=== PATIENT | male | born 1960 | race Caucasian/White ===

== ENCOUNTER 2017-06-03 20:26 | Inpatient (IN) | payer OTHER ==
[2017-06-03] MEDS: ALBUTEROL 0.5% (NEB) 2.5 MG/0.5 ML AMP INH (20:58)
[2017-06-03 21:19] LABS: ADD MAN DIFF? NO
[2017-06-03 21:22] LABS: WHITE BLOOD COUNT 6.5 10^3/ul (4.8-10.8)
[2017-06-03 21:22] LABS: BASOPHILS % 0.6 % (0.0-2.0); EOSINOPHILS % 0.2 % (0.0-7.0); HEMATOCRIT 28.1 % (42.0-52.0); HEMOGLOBIN 8.9 g/dl (14.0-18.0); LYMPHOCYTES # 0.6 10^3/ul (0.8-2.9); LYMPHOCYTES % 9.4 % (15.0-51.0); MEAN CORPUSCULAR HEMOGLOBIN 29.6 pg (29.0-33.0); MEAN CORPUSCULAR HGB CONC 31.7 g/dl (32.0-37.0); MEAN CORPUSCULAR VOLUME 93.4 fl (82.0-101.0); MEAN PLATELET VOLUME 9.9 fl (7.4-10.4); MONOCYTE # 0.3 10^3/ul (0.3-0.9); MONOCYTES % 4.5 % (0.0-11.0); NEUTROPHIL # 5.5 10^3/ul (1.6-7.5); PLATELET COUNT 242 10^3/UL (140-415); RED BLOOD COUNT 3.01 10^6/ul (4.70-6.10); RED CELL DISTRIBUTION WIDTH 18.2 % (11.5-14.5)
[2017-06-03] MEDS: morphine 4 MG/ML VIAL IV (21:23)
[2017-06-03 21:37] LABS: INR 1.03; PROTIME 13.6 Sec (11.9-14.9); PT RATIO 1.1
[2017-06-03 21:38] LABS: PARTIAL THROMBOPLASTIN TIME 31.5 Sec (25.0-35.0)
[2017-06-03 21:46] LABS: ALANINE AMINOTRANSFERASE 14 IU/L (13-69); ALBUMIN 2.6 g/dl (3.3-4.9); ALBUMIN/GLOBULIN RATIO 0.63; ALKALINE PHOSPHATASE 122 IU/L (42-121); ANION GAP 25 (8-16); ASPARTATE AMINO TRANSFERASE 28 IU/L (15-46); BLOOD UREA NITROGEN 71 mg/dl (7-20); CARBON DIOXIDE 22 mmol/L (21-31); CHLORIDE 100 mmol/L (97-110); GLUCOSE 98 mg/dl (70-220); LIPASE 281 U/L (23-300); SODIUM 140 mmol/L (135-144); TOTAL PROTEIN 6.7 g/dl (6.1-8.1)
[2017-06-03 21:54] LABS: POTASSIUM 7.3 mmol/L (3.5-5.1)
[2017-06-03 21:56] LABS: B-TYPE NATRIURETIC PEPTIDE 9690 PG/ML (0-125); TROPONIN-I 0.017 ng/ml (0.00-0.12)
[2017-06-03] MEDS: CALCIUM GLUCONATE 10% 2 GM in DEXTROSE 5% 100 ML IVPB (22:15)
[2017-06-03 22:20] LABS: AMMONIA 10 umol/l (9-30)
[2017-06-03] MEDS: DEXTROSE 50% 50 ML SYRINGE IV (22:25)
[2017-06-03] MEDS: INSULIN REGULAR, HUMAN 100 UNIT/1 ML 3ML VIAL IVP (22:28)
[2017-06-03] MEDS ORDERED: DEXTROSE 50% 50 ML SYRINGE IV (22:30)
[2017-06-04] MEDS: morphine 4 MG/ML VIAL IV (04:13)
[2017-06-04] MEDS ORDERED: ALBUTEROL/IPRATROPIUM (NEB) 3 ML AMP HHN (04:30)
[2017-06-04] MEDS ORDERED: ACETAMINOPHEN 325 MG TAB PO ×2 (04:30→16:30)
[2017-06-04] MEDS ORDERED: NACL 0.9% 3 ML SYG IV ×2 (04:30→16:30)
[2017-06-04] MEDS: NA POLYST SULFON 15 GM/60 ML BTL PO (04:36)
[2017-06-04 05:46] LABS: ADD MAN DIFF? NO
[2017-06-04 05:47] LABS: BASOPHILS % 0.5 % (0.0-2.0); EOSINOPHILS % 0.5 % (0.0-7.0); HEMATOCRIT 25.7 % (42.0-52.0); HEMOGLOBIN 8.2 g/dl (14.0-18.0); LYMPHOCYTES # 0.9 10^3/ul (0.8-2.9); LYMPHOCYTES % 14.2 % (15.0-51.0); MEAN CORPUSCULAR HEMOGLOBIN 29.7 pg (29.0-33.0); MEAN CORPUSCULAR HGB CONC 31.9 g/dl (32.0-37.0); MEAN CORPUSCULAR VOLUME 93.1 fl (82.0-101.0); MEAN PLATELET VOLUME 9.6 fl (7.4-10.4); MONOCYTE # 0.5 10^3/ul (0.3-0.9); MONOCYTES % 7.2 % (0.0-11.0); NEUTROPHIL # 4.8 10^3/ul (1.6-7.5); NEUTROPHILS % 77.1 % (39.0-77.0); PLATELET COUNT 186 10^3/UL (140-415); RED BLOOD COUNT 2.76 10^6/ul (4.70-6.10); RED CELL DISTRIBUTION WIDTH 18.4 % (11.5-14.5)
[2017-06-04 05:47] LABS: WHITE BLOOD COUNT 6.3 10^3/ul (4.8-10.8)
[2017-06-04 06:11] LABS: ALANINE AMINOTRANSFERASE 20 IU/L (13-69); ALBUMIN 2.8 g/dl (3.3-4.9); ALBUMIN/GLOBULIN RATIO 0.71; ALKALINE PHOSPHATASE 108 IU/L (42-121); ANION GAP 21 (8-16); ASPARTATE AMINO TRANSFERASE 20 IU/L (15-46); BLOOD UREA NITROGEN 72 mg/dl (7-20); CARBON DIOXIDE 26 mmol/L (21-31); CHLORIDE 99 mmol/L (97-110); GLUCOSE 56 mg/dl (70-220); MAGNESIUM 2.5 mg/dl (1.7-2.5); PHOSPHORUS 7.6 mg/dl (2.5-4.9); SODIUM 140 mmol/L (135-144); TOTAL PROTEIN 6.7 g/dl (6.1-8.1)
[2017-06-04 06:19] LABS: POTASSIUM 6.4 mmol/L (3.5-5.1)
[2017-06-04 06:27] LABS: CREATININE 16.08 mg/dl (0.61-1.24)
[2017-06-04] MEDS: ONDANSETRON 4 MG INJ IV (08:30)
[2017-06-04] MEDS: morphine 2 MG INJ IV (11:52)
[2017-06-04 13:52] LABS: IRON 37 ug/dl (35-150)
[2017-06-04 14:01] LABS: % IRON SATURATION 25 % SAT (22-52); TOTAL IRON BINDING CAPACITY 146 ug/dl (241-421)
[2017-06-04] MEDS ORDERED: ONDANSETRON 4 MG INJ IV (16:30)
[2017-06-04] MEDS ORDERED: ACETAMINOPHEN 650 MG SUPP PR (16:30)
[2017-06-04] MEDS ORDERED: BISACODYL (EC) 5 MG TAB PO (16:30)
[2017-06-04] MEDS ORDERED: DOCUSATE SODIUM 100 MG CAP PO (16:30)
[2017-06-04 17:31] LABS: POTASSIUM 5.4 mmol/L (3.5-5.1)
[2017-06-04] MEDS: EPOETIN 10000 UNITS/1 ML INJ (ESRD) SC (17:31)
[2017-06-04 20:06] LABS: HEPATITIS B SURFACE ANTIGEN NEGATIVE (NEGATIVE)
[2017-06-05 09:14] LABS: ADD MAN DIFF? NO
[2017-06-05 09:17] LABS: WHITE BLOOD COUNT 5.7 10^3/ul (4.8-10.8)
[2017-06-05 09:17] LABS: BASOPHIL # 0.1 10^3/ul (0.0-0.1); BASOPHILS % 1.1 % (0.0-2.0); EOSINOPHILS # 0.2 10^3/ul (0.0-0.5); EOSINOPHILS % 3.2 % (0.0-7.0); HEMATOCRIT 27.2 % (42.0-52.0); HEMOGLOBIN 8.5 g/dl (14.0-18.0); LYMPHOCYTES # 1.3 10^3/ul (0.8-2.9); MEAN CORPUSCULAR HEMOGLOBIN 29.9 pg (29.0-33.0); MEAN CORPUSCULAR HGB CONC 31.3 g/dl (32.0-37.0); MEAN CORPUSCULAR VOLUME 95.8 fl (82.0-101.0); MEAN PLATELET VOLUME 10.1 fl (7.4-10.4); MONOCYTE # 0.4 10^3/ul (0.3-0.9); NEUTROPHIL # 3.7 10^3/ul (1.6-7.5); NEUTROPHILS % 65.2 % (39.0-77.0); PLATELET COUNT 176 10^3/UL (140-415); RED BLOOD COUNT 2.84 10^6/ul (4.70-6.10); RED CELL DISTRIBUTION WIDTH 18.2 % (11.5-14.5)
[2017-06-05 09:40] LABS: ANION GAP 19 (8-16); BLOOD UREA NITROGEN 48 mg/dl (7-20); CALCIUM 10.5 mg/dl (8.4-10.2); CARBON DIOXIDE 28 mmol/L (21-31); CHLORIDE 102 mmol/L (97-110); CREATININE 11.78 mg/dl (0.61-1.24); GLUCOSE 79 mg/dl (70-220); POTASSIUM 5.7 mmol/L (3.5-5.1); SODIUM 143 mmol/L (135-144)
[2017-06-05 10:28] LABS: HEPATITIS B SURFACE ANTIBODY POSITIVE (NEGATIVE)
[2017-06-05] MEDS: CALCIUM CARBONATE 500 MG CHEW TAB PO (10:28)
[2017-06-05] MEDS: ALBUMIN HUMAN 25% 100 ML IV (10:58)
[2017-06-05] MEDS: HYDROCODONE/APAP (5/325) TAB PO (17:23)
[2017-06-05] MEDS: DOCUSATE SODIUM 100 MG CAP PO (21:27)
[2017-06-06 09:01] LABS: ADD MAN DIFF? NO
[2017-06-06 09:10] LABS: BASOPHILS % 0.6 % (0.0-2.0); EOSINOPHILS # 0.2 10^3/ul (0.0-0.5); EOSINOPHILS % 3.3 % (0.0-7.0); HEMATOCRIT 25.7 % (42.0-52.0); HEMOGLOBIN 8.2 g/dl (14.0-18.0); LYMPHOCYTES # 1.4 10^3/ul (0.8-2.9); LYMPHOCYTES % 26.3 % (15.0-51.0); MEAN CORPUSCULAR HEMOGLOBIN 30.3 pg (29.0-33.0); MEAN CORPUSCULAR HGB CONC 31.9 g/dl (32.0-37.0); MEAN CORPUSCULAR VOLUME 94.8 fl (82.0-101.0); MONOCYTE # 0.4 10^3/ul (0.3-0.9); MONOCYTES % 7.6 % (0.0-11.0); NEUTROPHIL # 3.2 10^3/ul (1.6-7.5); NEUTROPHILS % 61.8 % (39.0-77.0); PLATELET COUNT 154 10^3/UL (140-415); RED BLOOD COUNT 2.71 10^6/ul (4.70-6.10); RED CELL DISTRIBUTION WIDTH 17.9 % (11.5-14.5)
[2017-06-06 09:10] LABS: WHITE BLOOD COUNT 5.1 10^3/ul (4.8-10.8)
[2017-06-06 09:37] LABS: ALANINE AMINOTRANSFERASE 16 IU/L (13-69); ALBUMIN 2.8 g/dl (3.3-4.9); ALBUMIN/GLOBULIN RATIO 0.71; ALKALINE PHOSPHATASE 124 IU/L (42-121); ANION GAP 16 (8-16); ASPARTATE AMINO TRANSFERASE 21 IU/L (15-46); BILIRUBIN,INDIRECT 0.1 mg/dl (0-1.1); BILIRUBIN,TOTAL 0.1 mg/dl (0.2-1.3); BLOOD UREA NITROGEN 31 mg/dl (7-20); CALCIUM 10.2 mg/dl (8.4-10.2); CARBON DIOXIDE 31 mmol/L (21-31); CHLORIDE 99 mmol/L (97-110); GLUCOSE 81 mg/dl (70-220); MAGNESIUM 2.2 mg/dl (1.7-2.5); PHOSPHORUS 5.1 mg/dl (2.5-4.9); SODIUM 141 mmol/L (135-144); TOTAL PROTEIN 6.7 g/dl (6.1-8.1)
[2017-06-06] MEDS: LIDOCAINE 1% (MDV) 10 ML INJ (11:27)
[2017-06-06 11:33] LABS: HEMOGLOBIN A1C 4.3 % (0-5.9)
[2017-06-06] MEDS: EPOETIN 10000 UNITS/1 ML INJ (ESRD) SC (16:49)
[2017-06-06] MEDS ORDERED: ALBUMIN HUMAN 25% 100 ML IV (17:30)
[2017-06-06] MEDS: DOCUSATE SODIUM 100 MG CAP PO (20:17)
[2017-06-06] MEDS: CALCIUM CARBONATE 500 MG CHEW TAB PO (20:17)
[2017-06-07] MEDS: LEVOTHYROXINE 50 MCG TAB PO ×2 (06:00→06:14)
[2017-06-07] MEDS: HYDROCODONE/APAP (5/325) TAB PO (06:21)
[2017-06-07] MEDS: ENOXAPARIN 30 MG/0.3 ML SYG SC (09:00)
[2017-06-07] MEDS: ALBUMIN HUMAN 25% 100 ML IV (09:04)
[2017-06-07 09:05] LABS: ADD MAN DIFF? NO
[2017-06-07 09:17] LABS: WHITE BLOOD COUNT 3.9 10^3/ul (4.8-10.8)
[2017-06-07 09:17] LABS: BASOPHILS % 0.3 % (0.0-2.0); EOSINOPHILS # 0.1 10^3/ul (0.0-0.5); EOSINOPHILS % 2.8 % (0.0-7.0); HEMATOCRIT 23.8 % (42.0-52.0); HEMOGLOBIN 7.8 g/dl (14.0-18.0); LYMPHOCYTES % 25.2 % (15.0-51.0); MEAN CORPUSCULAR HEMOGLOBIN 30.4 pg (29.0-33.0); MEAN CORPUSCULAR HGB CONC 32.8 g/dl (32.0-37.0); MEAN CORPUSCULAR VOLUME 92.6 fl (82.0-101.0); MEAN PLATELET VOLUME 9.7 fl (7.4-10.4); MONOCYTE # 0.3 10^3/ul (0.3-0.9); MONOCYTES % 6.9 % (0.0-11.0); NEUTROPHIL # 2.5 10^3/ul (1.6-7.5); NEUTROPHILS % 64.5 % (39.0-77.0); PLATELET COUNT 131 10^3/UL (140-415); RED BLOOD COUNT 2.57 10^6/ul (4.70-6.10); RED CELL DISTRIBUTION WIDTH 17.6 % (11.5-14.5)
[2017-06-07 09:38] LABS: INR 1.12; PROTIME 14.6 Sec (11.9-14.9); PT RATIO 1.1
[2017-06-07 09:42] LABS: ALANINE AMINOTRANSFERASE 23 IU/L (13-69); ALBUMIN 2.1 g/dl (3.3-4.9); ALBUMIN/GLOBULIN RATIO 0.67; ALKALINE PHOSPHATASE 95 IU/L (42-121); ANION GAP 14 (8-16); ASPARTATE AMINO TRANSFERASE 15 IU/L (15-46); BLOOD UREA NITROGEN 27 mg/dl (7-20); CALCIUM 9.4 mg/dl (8.4-10.2); CARBON DIOXIDE 30 mmol/L (21-31); CHLORIDE 102 mmol/L (97-110); CREATININE 7.46 mg/dl (0.61-1.24); GLUCOSE 90 mg/dl (70-220); MAGNESIUM 1.9 mg/dl (1.7-2.5); PHOSPHORUS 3.7 mg/dl (2.5-4.9); SODIUM 142 mmol/L (135-144); TOTAL PROTEIN 5.2 g/dl (6.1-8.1)
[2017-06-07 09:53] LABS: FREE T4 (FREE THYROXINE) 0.38 ng/dl (0.64-1.79)
[2017-06-07 10:08] LABS: TRIIODOTHYRONINE 0.47 ng/ml (0.97-1.69)
== END 2017-06-07 15:34 | disposition home or self-care (01) | DRG 640 ==
LOC: MS4 22:28 → E/R 20:26
PROC: 0W9G3ZX Drainage of Peritoneal Cavity, Percutaneous Approach, Diagnostic (ICD-10-PCS; 2017-06-03)
PROC: 5A1D70Z Performance of Urinary Filtration, Intermittent, Less than 6 Hours Per Day (ICD-10-PCS; principal; 2017-06-04)
DX: E87.70 Fluid overload, unspecified (principal); N18.6 End stage renal disease; R18.8 Other ascites; J90 Pleural effusion, not elsewhere classified; T86.12 Kidney transplant failure; E87.5 Hyperkalemia; I95.9 Hypotension, unspecified; D63.1 Anemia in chronic kidney disease; D63.0 Anemia in neoplastic disease; G62.9 Polyneuropathy, unspecified; R60.1 Generalized edema; E03.9 Hypothyroidism, unspecified; Z91.15 Patient's noncompliance with renal dialysis; Z85.038 Personal history of other malignant neoplasm of large intestine
CPT/HCPCS: 36415; 70450; 71045; 76705; 80048; 80053; 82140; 82728; 82962; 83036; 83540; 83690; 83735; 83880; 84100; 84132; 84439; 84443; 84480; 84484; 85025; 85610; 85730; 86706; 87070; 87102; 87116; 87340; 88104; 88305; 90935; 93005; 94660; 94664; 96374; 96375; 96376; 99291-25

== ENCOUNTER 2017-08-29 17:50 | Emergency (ER) | payer OTHER ==
[2017-08-29] MEDS ORDERED: ALBUTEROL 0.5% (NEB) 2.5 MG/0.5 ML AMP INH (17:53)
[2017-08-29] MEDS ORDERED: IPRATROPIUM (NEB) 0.5 MG/2.5 ML AMP INH (17:53)
[2017-08-29] MEDS: FUROSEMIDE 40 MG INJ IV ×2 (18:12→19:26)
[2017-08-29 18:19] LABS: ADD MAN DIFF? NO
[2017-08-29 18:24] LABS: BASOPHIL # 0.1 10^3/ul (0.0-0.1); BASOPHILS % 1.7 % (0.0-2.0); EOSINOPHILS # 0.1 10^3/ul (0.0-0.5); EOSINOPHILS % 1.5 % (0.0-7.0); HEMOGLOBIN 9.8 g/dl (14.0-18.0); LYMPHOCYTES # 1.2 10^3/ul (0.8-2.9); LYMPHOCYTES % 20.7 % (15.0-51.0); MEAN CORPUSCULAR HEMOGLOBIN 28.2 pg (29.0-33.0); MEAN CORPUSCULAR HGB CONC 31.6 g/dl (32.0-37.0); MEAN CORPUSCULAR VOLUME 89.3 fl (82.0-101.0); MEAN PLATELET VOLUME 10.1 fl (7.4-10.4); MONOCYTE # 0.4 10^3/ul (0.3-0.9); MONOCYTES % 7.1 % (0.0-11.0); NEUTROPHIL # 4.1 10^3/ul (1.6-7.5); NEUTROPHILS % 68.3 % (39.0-77.0); PLATELET COUNT 232 10^3/UL (140-415); RED BLOOD COUNT 3.47 10^6/ul (4.70-6.10); RED CELL DISTRIBUTION WIDTH 14.8 % (11.5-14.5)
[2017-08-29 18:24] LABS: WHITE BLOOD COUNT 5.9 10^3/ul (4.8-10.8)
[2017-08-29 18:39] LABS: INR 0.99; PROTIME 13.2 Sec (11.9-14.9)
[2017-08-29 18:40] LABS: PARTIAL THROMBOPLASTIN TIME 29.2 Sec (25.0-35.0)
[2017-08-29 18:41] LABS: ALANINE AMINOTRANSFERASE 24 IU/L (13-69); ALBUMIN 2.5 g/dl (3.3-4.9); ALBUMIN/GLOBULIN RATIO 0.73; ALKALINE PHOSPHATASE 167 IU/L (42-121); ANION GAP 21 (8-16); ASPARTATE AMINO TRANSFERASE 28 IU/L (15-46); BILIRUBIN,INDIRECT 0.1 mg/dl (0-1.1); BILIRUBIN,TOTAL 0.1 mg/dl (0.2-1.3); BLOOD UREA NITROGEN 75 mg/dl (7-20); CALCIUM 9.2 mg/dl (8.4-10.2); CARBON DIOXIDE 23 mmol/L (21-31); CHLORIDE 100 mmol/L (97-110); CREATINE KINASE 37 IU/L (23-200); CREATININE 13.19 mg/dl (0.61-1.24); GLUCOSE 89 mg/dl (70-220); SODIUM 137 mmol/L (135-144); TOTAL PROTEIN 5.9 g/dl (6.1-8.1)
[2017-08-29 18:50] LABS: POTASSIUM 6.7 mmol/L (3.5-5.1)
[2017-08-29 18:53] LABS: B-TYPE NATRIURETIC PEPTIDE 17400 PG/ML (0-125); CK INDEX 5.5; CK-MB 2.04 ng/ml (0.0-2.4)
[2017-08-29 18:58] LABS: TROPONIN-I 0.134 ng/ml (0.000-0.120)
[2017-08-29] MEDS: NA BICARBONATE 8.4% 50 ML SYG IV (19:23)
[2017-08-29] MEDS: NA POLYST SULFON 15 GM/60 ML BTL PO (19:23)
[2017-08-29] MEDS: CA CHLORIDE 10% 10 ML SYRINGE IV (19:23)
[2017-08-29] MEDS: HYDROmorphONE 1 MG/ML SYG IV ×2 (19:23→23:02)
[2017-08-29] MEDS: ONDANSETRON 4 MG INJ IV ×2 (19:23→23:02)
[2017-08-29] MEDS: ALBUTEROL 0.5% (NEB) 2.5 MG/0.5 ML AMP INH (19:32)
[2017-08-29] MEDS: PIPER-TAZO 3.375 GM IV (PMX) 100 ML IVPB (20:54)
[2017-08-29] MEDS: LEVOFLOXACIN 750MG/D5W (PMX) 150 ML IVPB (22:45)
[2017-08-29] MEDS: ACETAMINOPHEN 500 MG TAB PO (22:45)
[2017-08-29 23:17] LABS: LACTIC ACID 2.9 mmol/L (0.5-2.0)
[2017-08-29 23:31] LABS: ALANINE AMINOTRANSFERASE 19 IU/L (13-69); ALBUMIN 2.4 g/dl (3.3-4.9); ALKALINE PHOSPHATASE 154 IU/L (42-121); ANION GAP 19 (8-16); ASPARTATE AMINO TRANSFERASE 30 IU/L (15-46); BLOOD UREA NITROGEN 77 mg/dl (7-20); CALCIUM 9.8 mg/dl (8.4-10.2); CARBON DIOXIDE 25 mmol/L (21-31); CHLORIDE 100 mmol/L (97-110); CREATININE 13.21 mg/dl (0.61-1.24); GLUCOSE 112 mg/dl (70-220); SODIUM 138 mmol/L (135-144); TOTAL PROTEIN 5.8 g/dl (6.1-8.1)
[2017-08-29 23:37] LABS: POTASSIUM 6.2 mmol/L (3.5-5.1)
[2017-08-30] MEDS: ALBUMIN HUMAN 25% 100 ML IV (00:38)
[2017-08-30] MEDS: NA POLYST SULFON 15 GM/60 ML BTL PO (00:42)
[2017-08-30 02:33] LABS: LACTIC ACID 3.2 mmol/L (0.5-2.0)
== END 2017-08-30 01:16 | disposition short-term general hospital (02) ==
LOC: E/R 08-30 01:16
DX: E87.5 Hyperkalemia (principal); N17.9 Acute kidney failure, unspecified; N18.9 Chronic kidney disease, unspecified; J90 Pleural effusion, not elsewhere classified; R18.8 Other ascites; Z79.82 Long term (current) use of aspirin; Z99.2 Dependence on renal dialysis; Z85.038 Personal history of other malignant neoplasm of large intestine
CPT/HCPCS: 36415; 71045; 80053; 82550; 82553; 83605; 83880; 84484; 85025; 85610; 85730; 87040; 93005; 94664; 96374; 96375; 96376; 99291-25

== ENCOUNTER → 2017-09-26 14:01 | Emergency (ER) | payer OTHER ==
[2017-09-26 09:43] LABS: ADD MAN DIFF? NO
[2017-09-26] MEDS: FENTAnyl 50 MCG/ML VIAL IV ×2 (09:46→10:38)
[2017-09-26] MEDS: SOD CHLORIDE 0.9% 500 ML IV (09:46)
[2017-09-26] MEDS: ASPIRIN 325 MG TAB PO (09:46)
[2017-09-26 09:52] LABS: BASOPHILS % 0.2 % (0.0-2.0); EOSINOPHILS % 0.6 % (0.0-7.0); HEMATOCRIT 29.5 % (42.0-52.0); HEMOGLOBIN 9.3 g/dl (14.0-18.0); LYMPHOCYTES # 0.7 10^3/ul (0.8-2.9); LYMPHOCYTES % 14.9 % (15.0-51.0); MEAN CORPUSCULAR HEMOGLOBIN 27.9 pg (29.0-33.0); MEAN CORPUSCULAR HGB CONC 31.5 g/dl (32.0-37.0); MEAN CORPUSCULAR VOLUME 88.6 fl (82.0-101.0); MEAN PLATELET VOLUME 9.5 fl (7.4-10.4); MONOCYTE # 0.3 10^3/ul (0.3-0.9); MONOCYTES % 5.2 % (0.0-11.0); NEUTROPHIL # 3.8 10^3/ul (1.6-7.5); NEUTROPHILS % 78.7 % (39.0-77.0); PLATELET COUNT 160 10^3/UL (140-415); RED BLOOD COUNT 3.33 10^6/ul (4.70-6.10)
[2017-09-26 09:52] LABS: WHITE BLOOD COUNT 4.8 10^3/ul (4.8-10.8)
[2017-09-26 10:12] LABS: INR 1.02; PROTIME 13.5 Sec (11.9-14.9); PT RATIO 1.1
[2017-09-26 10:13] LABS: PARTIAL THROMBOPLASTIN TIME 30.5 Sec (25.0-35.0)
[2017-09-26 10:18] LABS: ALANINE AMINOTRANSFERASE 24 IU/L (13-69); ALBUMIN 2.3 g/dl (3.3-4.9); ALBUMIN/GLOBULIN RATIO 0.74; ALKALINE PHOSPHATASE 125 IU/L (42-121); AMYLASE 69 U/L (11-123); ANION GAP 13 (8-16); ASPARTATE AMINO TRANSFERASE 26 IU/L (15-46); BILIRUBIN,INDIRECT 0.2 mg/dl (0-1.1); BILIRUBIN,TOTAL 0.2 mg/dl (0.2-1.3); BLOOD UREA NITROGEN 43 mg/dl (7-20); CALCIUM 8.6 mg/dl (8.4-10.2); CARBON DIOXIDE 27 mmol/L (21-31); CHLORIDE 98 mmol/L (97-110); CREATININE 9.46 mg/dl (0.61-1.24); GLUCOSE 103 mg/dl (70-220); LIPASE 148 U/L (23-300); POTASSIUM 4.4 mmol/L (3.5-5.1); SODIUM 134 mmol/L (135-144); TOTAL PROTEIN 5.4 g/dl (6.1-8.1)
[2017-09-26 10:28] LABS: TROPONIN-I 0.102 ng/ml (0.000-0.120)
[2017-09-26] MEDS: ALBUMIN HUMAN 5% 250 ML IV (12:47)
[2017-09-26] MEDS: LIDOCAINE 1% (MDV) 10 ML INJ (12:47)
== END | disposition short-term general hospital (02) ==
DX: R18.8 Other ascites (principal); R07.9 Chest pain, unspecified; J81.1 Chronic pulmonary edema; Z79.82 Long term (current) use of aspirin; Z85.038 Personal history of other malignant neoplasm of large intestine
CPT/HCPCS: 49083; 71045; 80053; 82150; 83690; 84484; 85025; 85610; 85730; 93005; 96374; 96375; 96376; 99285-25